=== PATIENT | female | born 1945 | race Caucasian/White ===

== ENCOUNTER 2019-01-05 11:32 | Inpatient (IN) | payer MEDICAID ==
[~2019-01-05] VITALS: Ht 152.4 cm; Wt 48.9 kg
[2019-01-05] MEDS ORDERED: ESCI10TA PO (11:44)
[2019-01-05] MEDS ORDERED: CARV3 PO (11:44)
[2019-01-05] MEDS ORDERED: LOSA25TA41 PO (11:44)
[2019-01-05 13:32] LABS: BASOPHILS % (AUTO) 0.8 % (0.0-2.0); EOSINOPHILS % (AUTO) 1.1 % (1.0-6.0); HEMATOCRIT 43.8 % (36-46); HEMOGLOBIN 14.3 g/dL (12.0-16.0); LYMPHOCYTES # (AUTO) 1.6 K/uL (1.0-4.8); LYMPHOCYTES % (AUTO) 24.6 % (22.0-44.0); MEAN CORPUSCULAR HEMOGLOBIN 27.5 pg (26.0-34.0); MEAN CORPUSCULAR HGB CONC 32.6 G/dL (31.0-37.0); MEAN CORPUSCULAR VOLUME 84 fL (80-100); MONOCYTES # (AUTO) 0.3 K/uL (0.1-1.0); MONOCYTES % (AUTO) 4.9 % (2.0-9.0); NEUTROPHILS # (AUTO) 4.6 K/uL (1.8-7.7); NEUTROPHILS % (AUTO) 68.6 % (40.0-70.0); PLATELET COUNT (AUTO) 174 K/uL (150-450); RED BLOOD CELL COUNT(AUTO) 5.19 MIL/uL (4.00-5.20); RED CELL DISTRIBUTION WIDTH 14.6 % (11.5-14.5)
[2019-01-05 13:35] LABS: ANION GAP 8 mmol/L (8-16); CALCIUM, TOTAL 10.2 mg/dL (8.8-10.5); CARBON DIOXIDE 30 mmol/L (22-29); CHLORIDE 102 mmol/L (98-107); GLOMERULAR FILTR. RATE CALC 55 mL/min (>60); GLUCOSE,RANDOM 101 mg/dL (70-110); POTASSIUM 4.7 mmol/L (3.5-5.1); SODIUM SERUM 140 mmol/L (136-145); UREA NITROGEN, BLOOD 7 mg/dL (7-18)
[2019-01-05 13:41] LABS: ALANINE AMINOTRANSFERASE 17 U/L (12-78); ALBUMIN 4.4 g/dL (3.4-5.0); ALKALINE PHOSPHATASE 63 U/L (46-116); ASPARTATE AMINOTRANSFERASE 23 U/L (15-37); BILIRUBIN,TOTAL 0.7 mg/dL (0.1-1.0); TOTAL PROTEIN, SERUM 7.1 g/dL (6.4-8.2)
[2019-01-05 15:18] LABS: AMPHET/METH SCREEN,URINE NEGATIVE (NEGATIVE); BARBITURATE SCREEN, URINE NEGATIVE (NEGATIVE); BENZODIAZEPINES SCREEN,URINE NEGATIVE (NEGATIVE); CANNABINOID SCREEN,URINE NEGATIVE (NEGATIVE); COCAINE SCREEN,URINE NEGATIVE (NEGATIVE); METHADONE SCREEN, URINE NEGATIVE (NEGATIVE); OPIATE SCREEN,URINE NEGATIVE (NEGATIVE)
[2019-01-05 15:19] LABS: PHENCYCLIDINE SCREEN,URINE NEGATIVE (NEGATIVE)
[2019-01-05] MEDS ORDERED: HALOPERIDOL 5 MG TABLET PO PRN (18:00)
[2019-01-05] MEDS ORDERED: ZOLPIDEM TARTRATE 5 MG TABLET PO PRN (18:00)
[2019-01-05 19:21] VITALS: BP 129/94
[2019-01-05] MEDS ORDERED: ONDANSETRON HCL 4 MG TABLET PO PRN (23:00)
[2019-01-05] MEDS ORDERED: CloNIDine HCL 0.1 MG TABLET PO PRN (23:00)
[2019-01-05] MEDS ORDERED: MAGNESIUM HYDROXIDE SUSPENSION 30 ML UDCUP PO PRN (23:00)
[2019-01-05] MEDS ORDERED: GuaiFENesin/D-METHORPHAN [SUGAR-FREE] 200-20MG/10 ML SYRUP UDCUP PO PRN (23:00)
[2019-01-05] MEDS ORDERED: ALBUTEROL SULFATE HFA 90 MCG/PUFF 8 GM INHALER IH PRN (23:00)
[2019-01-05] MEDS ORDERED: NICOTINE 14 MG/24 HOUR PATCH TD PRN (23:00)
[2019-01-05] MEDS ORDERED: LOPERAMIDE HCL 2 MG CAPSULE PO PRN (23:00)
[2019-01-05] MEDS ORDERED: PETROLATUM,WHITE 28 GM JELLY TP PRN (23:00)
[2019-01-05] MEDS ORDERED: MAG HYDROX/AL HYDROX/SIMETH ES 30 ML SUSPENSION UDCUP PO PRN (23:00)
[2019-01-06] MEDS ORDERED: PNEUMOCOCCAL VACCINE POLYVALENT 0.5 ML VIAL [PPSV23] IM ONE (07:30)
[2019-01-06 08:23] LABS: BASOPHILS % (AUTO) 1.1 % (0.0-2.0); EOSINOPHILS % (AUTO) 2.1 % (1.0-6.0); HEMOGLOBIN 13.3 g/dL (12.0-16.0); LYMPHOCYTES # (AUTO) 1.3 K/uL (1.0-4.8); LYMPHOCYTES % (AUTO) 31.5 % (22.0-44.0); MEAN CORPUSCULAR HEMOGLOBIN 27.5 pg (26.0-34.0); MEAN CORPUSCULAR HGB CONC 32.5 G/dL (31.0-37.0); MEAN CORPUSCULAR VOLUME 85 fL (80-100); MONOCYTES # (AUTO) 0.4 K/uL (0.1-1.0); MONOCYTES % (AUTO) 8.9 % (2.0-9.0); NEUTROPHILS # (AUTO) 2.3 K/uL (1.8-7.7); NEUTROPHILS % (AUTO) 56.4 % (40.0-70.0); PLATELET COUNT (AUTO) 142 K/uL (150-450); RED BLOOD CELL COUNT(AUTO) 4.83 MIL/uL (4.00-5.20); RED CELL DISTRIBUTION WIDTH 14.5 % (11.5-14.5)
[2019-01-06 08:33] LABS: HEMOGLOBIN A1C 5.8 % (4.5-6.2)
[2019-01-06 09:00] LABS: ALBUMIN 3.8 g/dL (3.4-5.0); BILIRUBIN,TOTAL 0.5 mg/dL (0.1-1.0); CALCIUM, TOTAL 9.6 mg/dL (8.8-10.5); CHOL/HDL RATIO 2.8 (3.9-5.7); CREATININE 1.15 mg/dL (0.60-1.30); POTASSIUM 4.3 mmol/L (3.5-5.1); THYROID STIMULATING HORMONE 1.06 uIU/mL (0.36-3.74)
[2019-01-06] MEDS: ESCITALOPRAM OXALATE 10 MG TABLET PO SCH (09:00)
[2019-01-06 11:26] VITALS: BP 107/61
[2019-01-06 17:34] VITALS: BP 141/63
[2019-01-07] MEDS: ESCITALOPRAM OXALATE 10 MG TABLET PO SCH (08:48)
[2019-01-07 09:48] VITALS: BP 144/58
[2019-01-07 18:22] VITALS: BP 101/58
[2019-01-08] MEDS: ESCITALOPRAM OXALATE 10 MG TABLET PO SCH ×2 (09:00→09:21)
[2019-01-08 10:05] VITALS: BP 125/91
[2019-01-08] MEDS: LORazepam 1 MG TABLET PO PRN (16:03)
[2019-01-08 16:50] VITALS: BP 120/69
[2019-01-09] MEDS: ESCITALOPRAM OXALATE 10 MG TABLET PO SCH (09:17)
[2019-01-09 12:36] VITALS: BP 115/62
[2019-01-09] MEDS: LORazepam 1 MG TABLET PO PRN (16:37)
[2019-01-09 16:38] VITALS: BP 114/76
[2019-01-10 08:45] VITALS: BP 94/54
[2019-01-10] MEDS: IBUPROFEN 400 MG TABLET PO PRN (08:50)
[2019-01-10] MEDS: ESCITALOPRAM OXALATE 10 MG TABLET PO SCH (08:50)
[2019-01-10 17:12] VITALS: BP 102/56
[2019-01-11 02:36] VITALS: BP 142/60
[2019-01-11] MEDS: IBUPROFEN 400 MG TABLET PO PRN ×3 (02:45→10:45)
[2019-01-11] MEDS ORDERED: ESCITALOPRAM OXALATE 10 MG TABLET PO SCH (09:00)
[2019-01-11 09:11] VITALS: BP 91/56
[2019-01-11] MEDS: ESCITALOPRAM OXALATE 10 MG TABLET PO SCH (09:14)
[2019-01-11] MEDS ORDERED: ESCITALOPRAM OXALATE 10 MG TABLET PO ONE (11:30)
[2019-01-11 20:18] VITALS: BP 107/61
[2019-01-12] MEDS: IBUPROFEN 400 MG TABLET PO PRN ×2 (02:13→10:44)
[2019-01-12] MEDS: LORazepam 1 MG TABLET PO PRN (02:15)
[2019-01-12 04:15] VITALS: BP 133/68
[2019-01-12] MEDS: ESCITALOPRAM OXALATE 10 MG TABLET PO SCH (10:36)
[2019-01-12 10:44] VITALS: BP 102/59
[2019-01-12 18:47] VITALS: BP 104/54
[2019-01-13 01:21] VITALS: BP 140/68
[2019-01-13] MEDS: IBUPROFEN 400 MG TABLET PO PRN ×2 (05:10→16:00)
[2019-01-13] MEDS: ESCITALOPRAM OXALATE 10 MG TABLET PO SCH (08:32)
[2019-01-13 09:00] VITALS: BP 90/50
[2019-01-13] MEDS: DOCUSATE SODIUM 100 MG CAPSULE PO PRN (09:13)
[2019-01-13 16:00] VITALS: BP 106/57
[2019-01-13 20:26] VITALS: BP 104/61
[2019-01-13] MEDS: ACETAMINOPHEN 325 MG TABLET PO PRN (20:26)
[2019-01-14 08:04] VITALS: BP 120/67
[2019-01-14 08:30] VITALS: BP 120/68
[2019-01-14] MEDS: ESCITALOPRAM OXALATE 10 MG TABLET PO SCH (08:37)
[2019-01-14] MEDS: ACETAMINOPHEN 325 MG TABLET PO PRN (08:39)
[2019-01-14 09:04] VITALS: BP 127/62
[2019-01-14] MEDS: DOCUSATE SODIUM 100 MG CAPSULE PO PRN (10:35)
[2019-01-14 16:20] VITALS: BP 109/60
[2019-01-14] MEDS: IBUPROFEN 400 MG TABLET PO PRN (16:22)
[2019-01-15] MEDS: ESCITALOPRAM OXALATE 10 MG TABLET PO SCH (08:54)
[2019-01-15 10:27] VITALS: BP 139/76
[2019-01-15 16:59] VITALS: BP 139/60
[2019-01-16] MEDS: ESCITALOPRAM OXALATE 10 MG TABLET PO SCH (08:56)
[2019-01-16 09:15] VITALS: BP 121/73
[2019-01-16 19:25] VITALS: BP 113/66
[2019-01-17 03:13] VITALS: BP 111/65
[2019-01-17] MEDS: ESCITALOPRAM OXALATE 10 MG TABLET PO SCH (08:15)
[2019-01-17] MEDS: DOCUSATE SODIUM 100 MG CAPSULE PO PRN (08:15)
[2019-01-17 10:57] VITALS: BP 105/58
[2019-01-17 16:07] VITALS: BP 129/67
[2019-01-17 23:50] VITALS: BP 100/64
[2019-01-17] MEDS: IBUPROFEN 400 MG TABLET PO PRN (23:58)
[2019-01-18] MEDS: ESCITALOPRAM OXALATE 10 MG TABLET PO SCH (08:15)
[2019-01-18 08:49] VITALS: BP 124/74
[2019-01-18 16:47] VITALS: BP 101/53
[2019-01-19] MEDS: ESCITALOPRAM OXALATE 10 MG TABLET PO SCH (08:06)
[2019-01-19 14:58] VITALS: BP 119/60
== END 2019-01-19 16:00 | disposition home or self-care (01) | DRG 751 ==
LOC: EMS 11:32 → 3EI 18:45
PROVIDERS: ADMIT Psychiatry & Neurology Child & Adolescent Psychiatry; ATTEND Psychiatry & Neurology Child & Adolescent Psychiatry
DX: F33.2 Major depressive disorder, recurrent severe without psychotic features (principal); F20.9 Schizophrenia, unspecified; D64.9 Anemia, unspecified; R45.851 Suicidal ideations; M25.569 Pain in unspecified knee; Z59.0 Homelessness; D72.819 Decreased white blood cell count, unspecified; D72.829 Elevated white blood cell count, unspecified; F41.9 Anxiety disorder, unspecified; I10 Essential (primary) hypertension; K58.9 Irritable bowel syndrome, unspecified; Z28.21 Immunization not carried out because of patient refusal; Z79.899 Other long term (current) drug therapy; Z90.49 Acquired absence of other specified parts of digestive tract
CPT/HCPCS: 83036; 84443; G0480

== ENCOUNTER 2019-02-14 19:21 | Inpatient (IN) | payer MEDICAID ==
[~2019-02-14] VITALS: Ht 162.6 cm; Wt 46.3 kg
[~2019-02-14 19:21] MED LIST: ESCI10TA PO
[2019-02-14] MEDS ORDERED: OMEP10 PO (19:40)
[2019-02-14] MEDS ORDERED: CARV3 PO (19:40)
[2019-02-14] MEDS ORDERED: LOSA50TA64 PO (19:40)
[2019-02-14 19:56] LABS: BASOPHILS % (AUTO) 1.1 % (0.0-2.0); EOSINOPHILS % (AUTO) 2.4 % (1.0-6.0); HEMATOCRIT 39.8 % (36-46); HEMOGLOBIN 13.2 g/dL (12.0-16.0); LYMPHOCYTES # (AUTO) 1.6 K/uL (1.0-4.8); LYMPHOCYTES % (AUTO) 29.4 % (22.0-44.0); MEAN CORPUSCULAR HEMOGLOBIN 27.5 pg (26.0-34.0); MEAN CORPUSCULAR VOLUME 83 fL (80-100); MONOCYTES # (AUTO) 0.4 K/uL (0.1-1.0); NEUTROPHILS # (AUTO) 3.2 K/uL (1.8-7.7); NEUTROPHILS % (AUTO) 59.1 % (40.0-70.0); PLATELET COUNT (AUTO) 194 K/uL (150-450); RED BLOOD CELL COUNT(AUTO) 4.79 MIL/uL (4.00-5.20); RED CELL DISTRIBUTION WIDTH 14.8 % (11.5-14.5)
[2019-02-14 20:17] LABS: ANION GAP 8 mmol/L (8-16); CALCIUM, TOTAL 9.5 mg/dL (8.8-10.5); CARBON DIOXIDE 30 mmol/L (22-29); CHLORIDE 103 mmol/L (98-107); CREATININE 0.97 mg/dL (0.60-1.30); GLOMERULAR FILTR. RATE CALC 56 mL/min (>60); GLUCOSE,RANDOM 115 mg/dL (70-110); POTASSIUM 3.7 mmol/L (3.5-5.1); SODIUM SERUM 141 mmol/L (136-145); UREA NITROGEN, BLOOD 12 mg/dL (7-18)
[2019-02-14 20:23] LABS: ALANINE AMINOTRANSFERASE 20 U/L (12-78); ALBUMIN 3.8 g/dL (3.4-5.0); ALKALINE PHOSPHATASE 59 U/L (46-116); ASPARTATE AMINOTRANSFERASE 19 U/L (15-37); BILIRUBIN,TOTAL 0.4 mg/dL (0.1-1.0); TOTAL PROTEIN, SERUM 6.6 g/dL (6.4-8.2)
[2019-02-14 21:06] LABS: APPEARANCE,URINE CLEAR (CLEAR); BILIRUBIN,URINE NEGATIVE (NEGATIVE); GLUCOSE, URINE (UA) NEGATIVE (NEGATIVE); KETONES,URINE NEGATIVE (NEGATIVE); LEUKOCYTE ESTERASE ,URINE LARGE (NEGATIVE); NITRATE,URINE NEGATIVE (NEGATIVE); OCCULT BLOOD,URINE NEGATIVE (NEGATIVE); PH,URINE 5.5 (5.0-8.0); PROTEIN,URINE NEGATIVE (NEGATIVE)
[2019-02-14 21:17] LABS: AMPHET/METH SCREEN,URINE NEGATIVE (NEGATIVE); BARBITURATE SCREEN, URINE NEGATIVE (NEGATIVE); BENZODIAZEPINES SCREEN,URINE NEGATIVE (NEGATIVE); CANNABINOID SCREEN,URINE NEGATIVE (NEGATIVE); COCAINE SCREEN,URINE NEGATIVE (NEGATIVE); METHADONE SCREEN, URINE NEGATIVE (NEGATIVE); OPIATE SCREEN,URINE NEGATIVE (NEGATIVE); PHENCYCLIDINE SCREEN,URINE NEGATIVE (NEGATIVE)
[2019-02-14] MEDS ORDERED: ZOLPIDEM TARTRATE 10 MG TABLET PO PRN (21:45)
[2019-02-14] MEDS ORDERED: HALOPERIDOL 5 MG TABLET PO PRN (21:45)
[2019-02-14] MEDS ORDERED: LORazepam 2 MG TABLET PO PRN (21:45)
[2019-02-14 21:56] LABS: RBC,URINE 0-2 /HPF (0-2)
[2019-02-14 21:57] LABS: BACTERIA,URINE Few /HPF (None Seen); SQUAMOUS EPITHELIAL CELL,UR Few /LPF (None Seen)
[2019-02-15 02:15] VITALS: BP 105/52
[2019-02-15 10:26] VITALS: BP 95/61
[2019-02-15] MEDS: ESCITALOPRAM OXALATE 10 MG TABLET PO SCH (11:15)
[2019-02-15] MEDS ORDERED: ACETAMINOPHEN 325 MG TABLET PO PRN (14:45)
[2019-02-15] MEDS ORDERED: MAGNESIUM HYDROXIDE SUSPENSION 30 ML UDCUP PO PRN (14:45)
[2019-02-15] MEDS ORDERED: GuaiFENesin/D-METHORPHAN [SUGAR-FREE] 200-20MG/10 ML SYRUP UDCUP PO PRN (14:45)
[2019-02-15] MEDS ORDERED: MAG HYDROX/AL HYDROX/SIMETH ES 30 ML SUSPENSION UDCUP PO PRN (14:45)
[2019-02-15] MEDS ORDERED: IBUPROFEN 400 MG TABLET PO PRN (14:45)
[2019-02-15] MEDS ORDERED: DOCUSATE SODIUM 100 MG CAPSULE PO PRN (14:45)
[2019-02-15] MEDS ORDERED: ONDANSETRON HCL 4 MG TABLET PO PRN (14:45)
[2019-02-15] MEDS ORDERED: LOPERAMIDE HCL 2 MG CAPSULE PO PRN (14:45)
[2019-02-15] MEDS ORDERED: CloNIDine HCL 0.1 MG TABLET PO PRN (14:45)
[2019-02-15] MEDS ORDERED: NICOTINE 14 MG/24 HOUR PATCH TD PRN (14:45)
[2019-02-15] MEDS ORDERED: ALBUTEROL SULFATE HFA 90 MCG/PUFF 8 GM INHALER IH PRN (14:45)
[2019-02-15] MEDS ORDERED: PETROLATUM,WHITE 28 GM JELLY TP PRN (14:45)
[2019-02-15 16:19] VITALS: BP 98/60
[2019-02-16] MEDS: MULTIVITAMINS WITH MINERALS, THERAPEUTIC TABLET PO SCH (09:00)
[2019-02-16] MEDS: ESCITALOPRAM OXALATE 10 MG TABLET PO SCH (09:00)
[2019-02-16] MEDS: OMEPRAZOLE 10 MG CAPSULE PO SCH (09:00)
[2019-02-16 16:15] VITALS: BP 102/55
[2019-02-17 09:38] VITALS: BP 137/64
[2019-02-17] MEDS: ESCITALOPRAM OXALATE 10 MG TABLET PO SCH (09:55)
[2019-02-17] MEDS: OMEPRAZOLE 10 MG CAPSULE PO SCH (09:55)
[2019-02-17] MEDS: MULTIVITAMINS WITH MINERALS, THERAPEUTIC TABLET PO SCH (09:55)
[2019-02-17 20:42] VITALS: BP 97/54
[2019-02-18 08:00] VITALS: BP 97/65
[2019-02-18] MEDS: OMEPRAZOLE 10 MG CAPSULE PO SCH (09:34)
[2019-02-18] MEDS: ESCITALOPRAM OXALATE 10 MG TABLET PO SCH (09:34)
[2019-02-18] MEDS: MULTIVITAMINS WITH MINERALS, THERAPEUTIC TABLET PO SCH (09:35)
[2019-02-18 16:59] VITALS: BP 105/55
[2019-02-19] MEDS: ESCITALOPRAM OXALATE 10 MG TABLET PO SCH (09:00)
[2019-02-19 10:29] VITALS: BP 125/75
[2019-02-19] MEDS: OMEPRAZOLE 10 MG CAPSULE PO SCH (10:36)
[2019-02-19] MEDS: MULTIVITAMINS WITH MINERALS, THERAPEUTIC TABLET PO SCH (10:36)
[2019-02-19 20:02] VITALS: BP 114/59
[2019-02-20] MEDS ORDERED: ESCITALOPRAM OXALATE 20 MG TABLET PO SCH (09:00)
[2019-02-20 09:01] VITALS: BP 109/86
[2019-02-20] MEDS: MULTIVITAMINS WITH MINERALS, THERAPEUTIC TABLET PO SCH (09:15)
[2019-02-20] MEDS: OMEPRAZOLE 10 MG CAPSULE PO SCH (09:16)
[2019-02-20] MEDS ORDERED: MULT-1239 PO (14:19)
== END 2019-02-20 17:15 | disposition home or self-care (01) | DRG 751 ==
LOC: EMS 19:22 → 3EI 23:00
PROVIDERS: ADMIT Psychiatry & Neurology Child & Adolescent Psychiatry; ATTEND Psychiatry & Neurology Child & Adolescent Psychiatry
DX: F33.2 Major depressive disorder, recurrent severe without psychotic features (principal); I95.9 Hypotension, unspecified; R45.851 Suicidal ideations; R31.9 Hematuria, unspecified; F20.9 Schizophrenia, unspecified; K58.9 Irritable bowel syndrome, unspecified; I10 Essential (primary) hypertension; F41.9 Anxiety disorder, unspecified
CPT/HCPCS: 87081; 87086; 93005; G0480

== ENCOUNTER 2019-03-09 17:58 | Inpatient (IN) | payer MEDICAID ==
[~2019-03-09] VITALS: Ht 162.6 cm; Wt 47.3 kg
[~2019-03-09 17:58] MED LIST changes: +MULT-1239 PO; +OMEP10 PO
[2019-03-09 19:51] LABS: BASOPHILS % (AUTO) 0.8 % (0.0-2.0); EOSINOPHILS % (AUTO) 1.6 % (1.0-6.0); HEMATOCRIT 38.5 % (36-46); HEMOGLOBIN 12.6 g/dL (12.0-16.0); LYMPHOCYTES # (AUTO) 1.4 K/uL (1.0-4.8); LYMPHOCYTES % (AUTO) 26.5 % (22.0-44.0); MEAN CORPUSCULAR HEMOGLOBIN 27.8 pg (26.0-34.0); MEAN CORPUSCULAR HGB CONC 32.8 G/dL (31.0-37.0); MEAN CORPUSCULAR VOLUME 85 fL (80-100); MONOCYTES # (AUTO) 0.4 K/uL (0.1-1.0); MONOCYTES % (AUTO) 7.6 % (2.0-9.0); NEUTROPHILS # (AUTO) 3.2 K/uL (1.8-7.7); NEUTROPHILS % (AUTO) 63.5 % (40.0-70.0); PLATELET COUNT (AUTO) 158 K/uL (150-450); RED BLOOD CELL COUNT(AUTO) 4.54 MIL/uL (4.00-5.20); RED CELL DISTRIBUTION WIDTH 15.3 % (11.5-14.5)
[2019-03-09 20:02] LABS: ANION GAP 11 mmol/L (8-16); CALCIUM, TOTAL 8.6 mg/dL (8.8-10.5); CARBON DIOXIDE 29 mmol/L (22-29); CHLORIDE 103 mmol/L (98-107); CREATININE 0.89 mg/dL (0.60-1.30); GLUCOSE,RANDOM 84 mg/dL (70-110); SODIUM SERUM 143 mmol/L (136-145); UREA NITROGEN, BLOOD 17 mg/dL (7-18)
[2019-03-09 20:03] LABS: GLOMERULAR FILTR. RATE CALC > 60 mL/min (>60)
[2019-03-09 20:04] LABS: ALANINE AMINOTRANSFERASE 23 U/L (12-78); ALBUMIN 3.3 g/dL (3.4-5.0); ALKALINE PHOSPHATASE 49 U/L (46-116); ASPARTATE AMINOTRANSFERASE 20 U/L (15-37); BILIRUBIN,TOTAL 0.4 mg/dL (0.1-1.0); TOTAL PROTEIN, SERUM 6.1 g/dL (6.4-8.2)
[2019-03-09] MEDS ORDERED: LORazepam 2 MG TABLET PO PRN (22:45)
[2019-03-09] MEDS ORDERED: HALOPERIDOL 5 MG TABLET PO PRN (22:45)
[2019-03-09] MEDS ORDERED: ZOLPIDEM TARTRATE 10 MG TABLET PO PRN (22:45)
[2019-03-10 00:44] VITALS: BP 128/70
[2019-03-10] MEDS ORDERED: PNEUMOCOCCAL VACCINE POLYVALENT 0.5 ML VIAL [PPSV23] IM ONE (01:15)
[2019-03-10 07:53] LABS: CHOL/HDL RATIO 2.6 (3.9-5.7)
[2019-03-10 08:30] VITALS: BP 103/62
[2019-03-10] MEDS: ESCITALOPRAM OXALATE 10 MG TABLET PO SCH (10:45)
[2019-03-10] MEDS ORDERED: ACETAMINOPHEN 325 MG TABLET PO PRN (16:45)
[2019-03-10] MEDS ORDERED: LOPERAMIDE HCL 2 MG CAPSULE PO PRN (16:45)
[2019-03-10] MEDS ORDERED: CloNIDine HCL 0.1 MG TABLET PO PRN (16:45)
[2019-03-10] MEDS ORDERED: ALBUTEROL SULFATE HFA 90 MCG/PUFF 8 GM INHALER IH PRN (16:45)
[2019-03-10] MEDS ORDERED: ONDANSETRON HCL 4 MG TABLET PO PRN (16:45)
[2019-03-10] MEDS ORDERED: DOCUSATE SODIUM 100 MG CAPSULE PO PRN (16:45)
[2019-03-10] MEDS ORDERED: MAG HYDROX/AL HYDROX/SIMETH ES 30 ML SUSPENSION UDCUP PO PRN (16:45)
[2019-03-10] MEDS ORDERED: MAGNESIUM HYDROXIDE SUSPENSION 30 ML UDCUP PO PRN (16:45)
[2019-03-10] MEDS ORDERED: IBUPROFEN 400 MG TABLET PO PRN (16:45)
[2019-03-10] MEDS ORDERED: PETROLATUM,WHITE 28 GM JELLY TP PRN (16:45)
[2019-03-10] MEDS ORDERED: GuaiFENesin/D-METHORPHAN [SUGAR-FREE] 200-20MG/10 ML SYRUP UDCUP PO PRN (16:45)
[2019-03-10] MEDS ORDERED: NICOTINE 14 MG/24 HOUR PATCH TD PRN (16:45)
[2019-03-10 17:19] VITALS: BP 110/63
[2019-03-11] MEDS: ESCITALOPRAM OXALATE 10 MG TABLET PO SCH (08:33)
[2019-03-11 10:13] VITALS: BP 91/57
[2019-03-11 16:48] VITALS: BP 133/63
[2019-03-12] MEDS: ESCITALOPRAM OXALATE 10 MG TABLET PO SCH (09:28)
[2019-03-12 15:19] VITALS: BP 112/60
[2019-03-12 16:56] VITALS: BP 116/71
[2019-03-13 08:00] VITALS: BP 114/56
[2019-03-13] MEDS: ESCITALOPRAM OXALATE 10 MG TABLET PO SCH (09:48)
[2019-03-13 18:03] VITALS: BP 109/60
[2019-03-14 01:50] VITALS: BP 105/63
[2019-03-14 08:45] VITALS: BP 113/46
[2019-03-14] MEDS: ESCITALOPRAM OXALATE 10 MG TABLET PO SCH (08:56)
[2019-03-14 16:00] VITALS: BP 89/62
[2019-03-15] MEDS: ESCITALOPRAM OXALATE 10 MG TABLET PO SCH (08:36)
[2019-03-15 09:57] VITALS: BP 116/73
[2019-03-15] MEDS ORDERED: ESCI5TAB PO ×2 (11:29→11:30)
== END 2019-03-15 16:05 | disposition home or self-care (01) | DRG 751 ==
LOC: EMS 17:59 → 3EI 22:30
PROVIDERS: ADMIT Psychiatry & Neurology Child & Adolescent Psychiatry; ATTEND Psychiatry & Neurology Child & Adolescent Psychiatry
DX: F33.2 Major depressive disorder, recurrent severe without psychotic features (principal); E43 Unspecified severe protein-calorie malnutrition; R45.851 Suicidal ideations; F03.90 Unspecified dementia, unspecified severity, without behavioral disturbance, psychotic disturbance, mood disturbance, and anxiety; F20.9 Schizophrenia, unspecified; E78.5 Hyperlipidemia, unspecified; E83.51 Hypocalcemia; I10 Essential (primary) hypertension; K58.9 Irritable bowel syndrome, unspecified; Z91.5 Personal history of self-harm; F41.9 Anxiety disorder, unspecified; Z28.21 Immunization not carried out because of patient refusal; Z68.1 Body mass index [BMI] 19.9 or less, adult
CPT/HCPCS: 87081; G0480

== ENCOUNTER 2019-03-23 19:57 | Emergency (ER) | payer MEDICAID ==
[~2019-03-23] VITALS: Ht 162.6 cm; Wt 47.7 kg
[~2019-03-23 19:57] MED LIST changes: -MULT-1239 PO; -OMEP10 PO
[2019-03-23 21:29] LABS: AMPHET/METH SCREEN,URINE NEGATIVE (NEGATIVE); BARBITURATE SCREEN, URINE NEGATIVE (NEGATIVE); BENZODIAZEPINES SCREEN,URINE NEGATIVE (NEGATIVE); CANNABINOID SCREEN,URINE NEGATIVE (NEGATIVE); COCAINE SCREEN,URINE NEGATIVE (NEGATIVE); METHADONE SCREEN, URINE NEGATIVE (NEGATIVE); OPIATE SCREEN,URINE NEGATIVE (NEGATIVE); PHENCYCLIDINE SCREEN,URINE NEGATIVE (NEGATIVE)
[2019-03-23 21:36] LABS: BASOPHILS % (AUTO) 0.7 % (0.0-2.0); EOSINOPHILS % (AUTO) 1.8 % (1.0-6.0); HEMATOCRIT 37.6 % (36-46); HEMOGLOBIN 12.6 g/dL (12.0-16.0); LYMPHOCYTES # (AUTO) 1.1 K/uL (1.0-4.8); LYMPHOCYTES % (AUTO) 22.8 % (22.0-44.0); MEAN CORPUSCULAR HEMOGLOBIN 27.9 pg (26.0-34.0); MEAN CORPUSCULAR HGB CONC 33.5 G/dL (31.0-37.0); MEAN CORPUSCULAR VOLUME 83 fL (80-100); MONOCYTES # (AUTO) 0.4 K/uL (0.1-1.0); MONOCYTES % (AUTO) 8.5 % (2.0-9.0); NEUTROPHILS # (AUTO) 3.2 K/uL (1.8-7.7); NEUTROPHILS % (AUTO) 66.2 % (40.0-70.0); PLATELET COUNT (AUTO) 204 K/uL (150-450); RED BLOOD CELL COUNT(AUTO) 4.52 MIL/uL (4.00-5.20); RED CELL DISTRIBUTION WIDTH 14.1 % (11.5-14.5)
[2019-03-23 21:46] LABS: ANION GAP 8 mmol/L (8-16); CALCIUM, TOTAL 9.1 mg/dL (8.8-10.5); CARBON DIOXIDE 31 mmol/L (22-29); CHLORIDE 101 mmol/L (98-107); GLOMERULAR FILTR. RATE CALC > 60 mL/min (>60); GLUCOSE,RANDOM 110 mg/dL (70-110); POTASSIUM 3.8 mmol/L (3.5-5.1); SODIUM SERUM 140 mmol/L (136-145); UREA NITROGEN, BLOOD 22 mg/dL (7-18)
[2019-03-23 21:53] LABS: ALANINE AMINOTRANSFERASE 14 U/L (12-78); ALKALINE PHOSPHATASE 68 U/L (46-116); ASPARTATE AMINOTRANSFERASE 16 U/L (15-37); BILIRUBIN,TOTAL 0.2 mg/dL (0.1-1.0); TOTAL PROTEIN, SERUM 6.5 g/dL (6.4-8.2)
[2019-03-23 23:57] VITALS: BP 117/68
== END 2019-03-24 00:40 | disposition short-term general hospital (02) ==
LOC: EMS 19:58
DX: F32.9 Major depressive disorder, single episode, unspecified (principal); R45.851 Suicidal ideations; I10 Essential (primary) hypertension; F20.9 Schizophrenia, unspecified; F03.90 Unspecified dementia, unspecified severity, without behavioral disturbance, psychotic disturbance, mood disturbance, and anxiety; Z79.899 Other long term (current) drug therapy
CPT/HCPCS: 36415; 80053; 80307; 85025; 99285; G0480

== ENCOUNTER 2019-06-22 12:52 | Inpatient (IN) | payer MEDICAID, OTHER ==
[~2019-06-22] VITALS: Ht 162.6 cm; Wt 49.5 kg
[2019-06-22 14:14] LABS: AMPHET/METH SCREEN,URINE NEGATIVE (NEGATIVE); BARBITURATE SCREEN, URINE NEGATIVE (NEGATIVE); BENZODIAZEPINES SCREEN,URINE NEGATIVE (NEGATIVE); CANNABINOID SCREEN,URINE NEGATIVE (NEGATIVE); COCAINE SCREEN,URINE NEGATIVE (NEGATIVE); METHADONE SCREEN, URINE NEGATIVE (NEGATIVE); OPIATE SCREEN,URINE NEGATIVE (NEGATIVE)
[2019-06-22 14:16] LABS: PHENCYCLIDINE SCREEN,URINE NEGATIVE (NEGATIVE)
[2019-06-22 14:21] LABS: BASOPHILS % (AUTO) 1.1 % (0.0-2.0); EOSINOPHILS % (AUTO) 1.2 % (1.0-6.0); HEMATOCRIT 41.4 % (36-46); HEMOGLOBIN 13.5 g/dL (12.0-16.0); LYMPHOCYTES # (AUTO) 1.2 K/uL (1.0-4.8); LYMPHOCYTES % (AUTO) 24.7 % (22.0-44.0); MEAN CORPUSCULAR HGB CONC 32.5 G/dL (31.0-37.0); MEAN CORPUSCULAR VOLUME 83 fL (80-100); MONOCYTES # (AUTO) 0.3 K/uL (0.1-1.0); NEUTROPHILS # (AUTO) 3.1 K/uL (1.8-7.7); PLATELET COUNT (AUTO) 196 K/uL (150-450); RED BLOOD CELL COUNT(AUTO) 4.99 MIL/uL (4.00-5.20); RED CELL DISTRIBUTION WIDTH 14.4 % (11.5-14.5)
[2019-06-22 14:33] LABS: ALANINE AMINOTRANSFERASE 19 U/L (12-78); ALBUMIN 3.7 g/dL (3.4-5.0); ALKALINE PHOSPHATASE 68 U/L (46-116); ANION GAP 6 mmol/L (8-16); ASPARTATE AMINOTRANSFERASE 19 U/L (15-37); BILIRUBIN,TOTAL 0.3 mg/dL (0.1-1.0); CALCIUM, TOTAL 9.2 mg/dL (8.8-10.5); CARBON DIOXIDE 30 mmol/L (22-29); CHLORIDE 103 mmol/L (98-107); CREATININE 0.97 mg/dL (0.60-1.30); GLOMERULAR FILTR. RATE CALC 56 mL/min (>60); GLUCOSE,RANDOM 119 mg/dL (70-110); POTASSIUM 3.8 mmol/L (3.5-5.1); SODIUM SERUM 139 mmol/L (136-145); TOTAL PROTEIN, SERUM 6.6 g/dL (6.4-8.2)
[2019-06-22 14:51] LABS: UREA NITROGEN, BLOOD 13 mg/dL (7-18)
[2019-06-22] MEDS ORDERED: LORazepam 1 MG TABLET PO PRN (16:30)
[2019-06-22] MEDS ORDERED: HALOPERIDOL 5 MG TABLET PO PRN (16:30)
[2019-06-22] MEDS ORDERED: ZOLPIDEM TARTRATE 10 MG TABLET PO PRN (16:30)
[2019-06-22] MEDS ORDERED: GuaiFENesin/D-METHORPHAN [SUGAR-FREE] 200-20MG/10 ML SYRUP UDCUP PO PRN (21:00)
[2019-06-22] MEDS ORDERED: ACETAMINOPHEN 325 MG TABLET PO PRN (21:00)
[2019-06-22] MEDS ORDERED: ONDANSETRON HCL 4 MG TABLET PO PRN (21:00)
[2019-06-22] MEDS ORDERED: CloNIDine HCL 0.1 MG TABLET PO PRN (21:00)
[2019-06-22] MEDS ORDERED: LOPERAMIDE HCL 2 MG CAPSULE PO PRN (21:00)
[2019-06-22] MEDS ORDERED: NICOTINE 14 MG/24 HOUR PATCH TD PRN (21:00)
[2019-06-22] MEDS ORDERED: MAG HYDROX/AL HYDROX/SIMETH ES 30 ML SUSPENSION UDCUP PO PRN (21:00)
[2019-06-22] MEDS ORDERED: PETROLATUM,WHITE 28 GM JELLY TP PRN (21:00)
[2019-06-22] MEDS ORDERED: IBUPROFEN 400 MG TABLET PO PRN (21:00)
[2019-06-22] MEDS ORDERED: ALBUTEROL SULFATE HFA 90 MCG/PUFF 8 GM INHALER IH PRN (21:00)
[2019-06-22 22:05] VITALS: BP 101/68
[2019-06-23 05:27] VITALS: BP 108/72
[2019-06-23 09:17] VITALS: BP 102/51
[2019-06-23 09:22] LABS: CHOL/HDL RATIO 2.8 (3.9-5.7); FREE T4 (FREE THYROXINE) 0.83 ng/dL (0.76-1.46); THYROID STIMULATING HORMONE 1.88 uIU/mL (0.36-3.74)
[2019-06-23] MEDS: SERTRALINE HCL 50 MG TABLET PO SCH (10:01)
[2019-06-23 16:36] VITALS: BP 107/62
[2019-06-24] VITALS: BP 101/93
[2019-06-24] MEDS: SERTRALINE HCL 50 MG TABLET PO SCH (08:42)
[2019-06-24 09:19] VITALS: BP 100/66
[2019-06-24 16:28] VITALS: BP 111/60
[2019-06-25 07:23] VITALS: BP 108/70
[2019-06-25] MEDS: SERTRALINE HCL 100 MG TABLET PO SCH (09:07)
[2019-06-25 09:11] VITALS: BP 94/61
[2019-06-25 10:00] VITALS: BP 108/62
[2019-06-25 16:23] VITALS: BP 114/68
[2019-06-26 01:02] VITALS: BP 103/65
[2019-06-26 08:53] VITALS: BP 102/66
[2019-06-26] MEDS: SERTRALINE HCL 100 MG TABLET PO SCH (09:39)
[2019-06-26 16:26] VITALS: BP 114/103
[2019-06-27 04:23] VITALS: BP 110/68
[2019-06-27 08:34] VITALS: BP 108/61
[2019-06-27] MEDS: SERTRALINE HCL 100 MG TABLET PO SCH (08:45)
[2019-06-27 16:38] VITALS: BP 110/60
[2019-06-27] MEDS: MAGNESIUM HYDROXIDE SUSPENSION 30 ML UDCUP PO PRN (17:41)
[2019-06-28 00:24] VITALS: BP 110/67
[2019-06-28] MEDS: DOCUSATE SODIUM 100 MG CAPSULE PO PRN (04:43)
[2019-06-28 08:23] VITALS: BP 112/60
[2019-06-28] MEDS: SERTRALINE HCL 100 MG TABLET PO SCH (08:26)
[2019-06-28 16:23] VITALS: BP 110/60
[2019-06-29 07:09] VITALS: BP 103/64
[2019-06-29] MEDS: SERTRALINE HCL 100 MG TABLET PO SCH (08:35)
[2019-06-29 09:10] VITALS: BP 98/54
[2019-06-29 16:09] VITALS: BP 115/58
[2019-06-30 01:13] VITALS: BP 108/63
[2019-06-30] MEDS: DOCUSATE SODIUM 100 MG CAPSULE PO PRN (08:33)
[2019-06-30] MEDS: SERTRALINE HCL 100 MG TABLET PO SCH (08:33)
[2019-06-30] MEDS: MULTIVITAMINS WITH MINERALS, THERAPEUTIC TABLET PO SCH (08:33)
[2019-06-30 08:47] VITALS: BP 107/61
[2019-06-30 19:14] VITALS: BP 114/69
[2019-07-01 06:38] VITALS: BP 107/62
[2019-07-01] MEDS: MULTIVITAMINS WITH MINERALS, THERAPEUTIC TABLET PO SCH (08:40)
[2019-07-01] MEDS: SERTRALINE HCL 100 MG TABLET PO SCH (08:40)
[2019-07-01 08:51] VITALS: BP 110/61
[2019-07-01 16:08] VITALS: BP 96/53
[2019-07-02 06:28] VITALS: BP 105/52
[2019-07-02 08:36] VITALS: BP 100/60
[2019-07-02] MEDS: MULTIVITAMINS WITH MINERALS, THERAPEUTIC TABLET PO SCH (09:13)
[2019-07-02] MEDS: SERTRALINE HCL 100 MG TABLET PO SCH (09:14)
[2019-07-02 17:04] VITALS: BP 105/60
[2019-07-03 00:19] VITALS: BP 106/62
[2019-07-03] MEDS: DOCUSATE SODIUM 100 MG CAPSULE PO PRN (06:57)
[2019-07-03 08:19] VITALS: BP 138/60
[2019-07-03] MEDS: MULTIVITAMINS WITH MINERALS, THERAPEUTIC TABLET PO SCH (08:38)
[2019-07-03] MEDS: SERTRALINE HCL 100 MG TABLET PO SCH (08:38)
[2019-07-03 16:12] VITALS: BP 118/64
[2019-07-03] MEDS: MAGNESIUM HYDROXIDE SUSPENSION 30 ML UDCUP PO PRN (16:59)
[2019-07-04 06:14] VITALS: BP 112/60
[2019-07-04 08:44] VITALS: BP 103/60
[2019-07-04] MEDS: MULTIVITAMINS WITH MINERALS, THERAPEUTIC TABLET PO SCH (08:45)
[2019-07-04] MEDS: SERTRALINE HCL 100 MG TABLET PO SCH (08:45)
[2019-07-04] MEDS ORDERED: SERT100T12 PO (10:54)
== END 2019-07-04 13:25 | disposition home or self-care (01) | DRG 751 ==
LOC: EMS 12:53 → B2S 16:55
PROVIDERS: ADMIT Psychiatry & Neurology Psychiatry; ATTEND Psychiatry & Neurology Psychiatry
DX: F33.2 Major depressive disorder, recurrent severe without psychotic features (principal); E43 Unspecified severe protein-calorie malnutrition; F03.90 Unspecified dementia, unspecified severity, without behavioral disturbance, psychotic disturbance, mood disturbance, and anxiety; R45.851 Suicidal ideations; E78.5 Hyperlipidemia, unspecified; F20.9 Schizophrenia, unspecified; I10 Essential (primary) hypertension; K21.9 Gastro-esophageal reflux disease without esophagitis; M19.90 Unspecified osteoarthritis, unspecified site; R41.843 Psychomotor deficit; R45.87 Impulsiveness; K58.9 Irritable bowel syndrome, unspecified; Z90.49 Acquired absence of other specified parts of digestive tract; Z68.1 Body mass index [BMI] 19.9 or less, adult; Z91.5 Personal history of self-harm
CPT/HCPCS: 83036; 84439; 84443; 93005; G0480; Q0162

== ENCOUNTER 2019-07-06 21:12 | Inpatient (IN) | payer MEDICARE, OTHER ==
[~2019-07-06] VITALS: Ht 162.6 cm; Wt 50.4 kg
[~2019-07-06 21:12] MED LIST changes: -ESCI10TA PO; +SERT100T12 PO
[2019-07-06 21:58] LABS: BASOPHILS % (AUTO) 0.8 % (0.0-2.0); EOSINOPHILS % (AUTO) 0.8 % (1.0-6.0); HEMATOCRIT 34.1 % (36-46); HEMOGLOBIN 11.4 g/dL (12.0-16.0); LYMPHOCYTES # (AUTO) 0.6 K/uL (1.0-4.8); LYMPHOCYTES % (AUTO) 9.3 % (22.0-44.0); MEAN CORPUSCULAR HEMOGLOBIN 27.6 pg (26.0-34.0); MEAN CORPUSCULAR HGB CONC 33.6 G/dL (31.0-37.0); MEAN CORPUSCULAR VOLUME 82 fL (80-100); MONOCYTES # (AUTO) 0.5 K/uL (0.1-1.0); MONOCYTES % (AUTO) 6.8 % (2.0-9.0); NEUTROPHILS # (AUTO) 5.7 K/uL (1.8-7.7); NEUTROPHILS % (AUTO) 82.3 % (40.0-70.0); PLATELET COUNT (AUTO) 178 K/uL (150-450); RED BLOOD CELL COUNT(AUTO) 4.15 MIL/uL (4.00-5.20); RED CELL DISTRIBUTION WIDTH 14.2 % (11.5-14.5)
[2019-07-06 22:26] LABS: ANION GAP 7 mmol/L (8-16); CALCIUM, TOTAL 8.5 mg/dL (8.8-10.5); CARBON DIOXIDE 28 mmol/L (22-29); CHLORIDE 106 mmol/L (98-107); CREATININE 0.85 mg/dL (0.60-1.30); GLUCOSE,RANDOM 126 mg/dL (70-110); POTASSIUM 3.4 mmol/L (3.5-5.1); SODIUM SERUM 141 mmol/L (136-145); UREA NITROGEN, BLOOD 14 mg/dL (7-18)
[2019-07-06 22:27] LABS: GLOMERULAR FILTR. RATE CALC > 60 mL/min (>60)
[2019-07-06 22:32] LABS: ALANINE AMINOTRANSFERASE 21 U/L (12-78); ALKALINE PHOSPHATASE 67 U/L (46-116); ASPARTATE AMINOTRANSFERASE 19 U/L (15-37); BILIRUBIN,TOTAL 0.3 mg/dL (0.1-1.0); LIPASE 111 U/L (73-393)
[2019-07-07] MEDS ORDERED: AZITHROMYCIN 500 MG/NS 250 ML IV ONE (01:45)
[2019-07-07] MEDS ORDERED: CefTRIAXone 1 GM/DEXTROSE 50 ML IV ONE (01:45)
[2019-07-07] MEDS ORDERED: ACETAMINOPHEN 325 MG TABLET PO PRN ×2 (02:00→11:00)
[2019-07-07] MEDS ORDERED: ONDANSETRON HCL 4 MG/2 ML VIAL IVP PRN (02:00)
[2019-07-07] MEDS ORDERED: 0.9% SODIUM CHLORIDE 10 ML SYRINGE IVP PRN (02:00)
[2019-07-07] MEDS ORDERED: MAG HYDROX/AL HYDROX/SIMETH ES 30 ML SUSPENSION UDCUP ONE (02:11)
[2019-07-07] MEDS ORDERED: MAG HYDROX/AL HYDROX/SIMETH ES 30 ML SUSPENSION UDCUP PO ONE (02:15)
[2019-07-07] MEDS ORDERED: SODIUM CHLORIDE 0.9% 1,000 ML ONE (03:02)
[2019-07-07 03:34] VITALS: BP 128/60
[2019-07-07 07:25] VITALS: BP 111/53
[2019-07-07 11:09] VITALS: BP 94/62
[2019-07-07] MEDS: BENZONATATE 100 MG CAPSULE PO SCH ×3 (11:23→23:32)
[2019-07-07 15:50] VITALS: BP 104/53
[2019-07-07] MEDS: HEPARIN SODIUM,PORCINE 5,000 UNITS/ML VIAL SQ SCH ×2 (15:53→23:31)
[2019-07-07 19:52] VITALS: BP 109/54
[2019-07-07] MEDS: DOCUSATE SODIUM 100 MG CAPSULE PO SCH (20:10)
[2019-07-07 23:38] VITALS: BP 105/66
[2019-07-08] MEDS: CefTRIAXone 1 GM/DEXTROSE 50 ML IV SCH (00:39)
[2019-07-08] MEDS: AZITHROMYCIN 500 MG/NS 250 ML IV SCH (01:32)
[2019-07-08 05:02] VITALS: BP 123/60
[2019-07-08 07:37] VITALS: BP 113/50
[2019-07-08 08:22] LABS: ALANINE AMINOTRANSFERASE 19 U/L (12-78); ALBUMIN 2.8 g/dL (3.4-5.0); ALKALINE PHOSPHATASE 58 U/L (46-116); ANION GAP 7 mmol/L (8-16); ASPARTATE AMINOTRANSFERASE 16 U/L (15-37); BILIRUBIN,TOTAL 0.3 mg/dL (0.1-1.0); CALCIUM, TOTAL 8.8 mg/dL (8.8-10.5); CARBON DIOXIDE 29 mmol/L (22-29); CHLORIDE 106 mmol/L (98-107); CREATININE 0.61 mg/dL (0.60-1.30); GLUCOSE,RANDOM 87 mg/dL (70-110); SODIUM SERUM 142 mmol/L (136-145); UREA NITROGEN, BLOOD 10 mg/dL (7-18)
[2019-07-08 08:26] LABS: GLOMERULAR FILTR. RATE CALC > 60 mL/min (>60)
[2019-07-08] MEDS: BENZONATATE 100 MG CAPSULE PO SCH ×3 (08:38→23:49)
[2019-07-08] MEDS: HEPARIN SODIUM,PORCINE 5,000 UNITS/ML VIAL SQ SCH ×3 (08:38→23:48)
[2019-07-08] MEDS: DOCUSATE SODIUM 100 MG CAPSULE PO SCH ×2 (08:38→19:57)
[2019-07-08 12:05] VITALS: BP 92/45
[2019-07-08 15:49] VITALS: BP 101/56
[2019-07-08 19:40] VITALS: BP 100/53
[2019-07-08 23:57] VITALS: BP 117/59
[2019-07-09] MEDS: CefTRIAXone 1 GM/DEXTROSE 50 ML IV SCH (00:07)
[2019-07-09] MEDS: AZITHROMYCIN 500 MG/NS 250 ML IV SCH (01:19)
[2019-07-09 04:18] VITALS: BP 107/62
[2019-07-09 07:56] VITALS: BP 99/70
[2019-07-09] MEDS: DOCUSATE SODIUM 100 MG CAPSULE PO SCH (08:21)
[2019-07-09] MEDS: BENZONATATE 100 MG CAPSULE PO SCH (08:22)
[2019-07-09] MEDS: HEPARIN SODIUM,PORCINE 5,000 UNITS/ML VIAL SQ SCH (08:23)
[2019-07-09] MEDS ORDERED: LEVO-72 PO (11:04)
[2019-07-09 11:33] VITALS: BP 90/56
== END 2019-07-09 14:40 | disposition home or self-care (01) | DRG 193 ==
LOC: EMS 21:12 → 5S 07-07 02:00
PROVIDERS: ADMIT Internal Medicine; ATTEND Internal Medicine
DX: J18.9 Pneumonia, unspecified organism (principal); E43 Unspecified severe protein-calorie malnutrition; Z68.1 Body mass index [BMI] 19.9 or less, adult; R07.89 Other chest pain; F03.90 Unspecified dementia, unspecified severity, without behavioral disturbance, psychotic disturbance, mood disturbance, and anxiety; F20.9 Schizophrenia, unspecified; I10 Essential (primary) hypertension; I49.9 Cardiac arrhythmia, unspecified; F32.9 Major depressive disorder, single episode, unspecified; Z82.49 Family history of ischemic heart disease and other diseases of the circulatory system; Z90.49 Acquired absence of other specified parts of digestive tract
CPT/HCPCS: 71250; 87040; 93005; 96365; G0480; J0456; J0696; J1644; J7030